=== PATIENT | female | born 1995 | race Caucasian/White ===

== ENCOUNTER 2018-01-17 01:09 | Emergency (ER) | END 2018-01-17 04:15 | disposition home or self-care (01) ==

== ENCOUNTER 2018-08-16 00:19 | Outpatient (CLI) | payer OTHER ==
[~2018-08-16] VITALS: Ht 167.6 cm; Wt 77.1 kg
[~2018-08-16 00:19] MED LIST: ACET500C5 PO
[2018-08-16 00:38] VITALS: BP 127/66; PULSE 90; RESP 16; Ht 167.6 cm; Wt 77.1 kg
--- NOTE | 2018-08-16 04:38 | TRIAGE ---
OB Triage Datetime Report Generated by CPN: 08/16/2018 04:37 Datetime: 08/16/2018 03:08 Stage of : OB Triage Labor Evaluation Frequency: None Monitor Mode: External Resting Tone [place]: Relaxed Heart Rate FHR Baseline Rate: 150 Monitor Mode: External US FHR Baseline Changes: No Baseline Change Variability: Moderate 6-25 bpm Accelerations: 15X15 Decelerations: None Category: Category I Datetime: 08/16/2018 03:06 Stage of : OB Triage Temperature Route: Oral Datetime: 08/16/2018 03:00 Stage of : OB Triage Labor Evaluation Frequency: Irregular Monitor Mode: External Duration (sec)2399: 40-70 Quality: Mild Pattern: Normal: <= 5 Contractions in 10 Minutes Resting Tone [place]: Relaxed Heart Rate FHR Baseline Rate: 150 Monitor Mode: External US FHR Baseline Changes: No Baseline Change Variability: Moderate 6-25 bpm Accelerations: 15X15 Decelerations: Variable (Annotations: x1) Category: Category II Datetime: 08/16/2018 02:00 Stage of : OB Triage Labor Evaluation Frequency: Irregular Monitor Mode: External Duration (sec)2399: 40-60 Quality: Mild Pattern: Normal: <= 5 Contractions in 10 Minutes Resting Tone [place]: Relaxed Heart Rate FHR Baseline Rate: 150 Monitor Mode: External US FHR Baseline Changes: No Baseline Change Variability: Moderate 6-25 bpm Accelerations: 15X15 Decelerations: None Category: Category I Datetime: 08/16/2018 01:00 Stage of : OB Triage Labor Evaluation Frequency: Irregular Monitor Mode: External Duration (sec)2399: 40-50 Quality: Mild Pattern: Normal: <= 5 Contractions in 10 Minutes Resting Tone [place]: Relaxed Heart Rate FHR Baseline Rate: 150 Monitor Mode: External US Variability: Moderate 6-25 bpm Accelerations: 15X15 Decelerations: None Category: Category I Datetime: 08/16/2018 00:30 Stage of : OB Triage EGA: 37.4 Maternal Assessment Level of Consciousness: Fully Conscious DTR's/Clonus: DTRs 2+; No Clonus Headache: Denies Blurred Vision: No Respiratory Effort: Unlabored; Regular Rhythm; Equal Expansion Breath Sounds, Left: Clear and Equal Breath Sounds, Right: Clear and Equal Nausea/Vomiting: Denies RUQ Epigastric Pain: Denies Lower Extremities Edema: None Degree: None Upper Extremities Edema: None Degree: None Facial Edema: None Temperature Route: Oral Fall Risk Assessment History of Falling: (0) No Secondary Diagnosis: (0) No Ambulatory Aid: (0) Bedrest/Nurse Assist IV Therapy: (0) No Gait: (0) Normal/Bedrest/Immobile Mental Status: (0) Oriented to Own Ability Fall Score: 0 Fall Risk Score Definition: No Risk: No action required Vaginal Exam Membrane Status: Intact Datetime: 08/16/2018 00:28 Time of Arrival: 08/16/2018 00:05 Arrived By: Wheelchair Arrived From: Emergency Dept Chief Complaint: PT PRESENTS TO OB [facility] WITH C/O OF CONSTANT BACK PAIN, SORE THROAT, COUGH, AND E ARACHE Movement: Present Contractions: Irregular Rupture of Membranes: Denies Vaginal Bleeding: None Vaginal Discharge: Denies Recent Sexual Intercouse: Denies Abdominal Trauma: Not Applicable Patient Complaints: Back Pain; Cough; Other Time Provider Notified: 08/16/2018 00:50 Provider Notified: GEO Initial Plan: EFM Datetime: 08/16/2018 00:25 Contraction Comments: TOCO APPLIED Comments: US APPLIED
--- NOTE | 2018-08-16 06:26 | PN ---
Triage Information Date/Time 08/16/1806/05/616 Reason for visit: sore troat and earache ,coughing , backache with coughing Weeks of Gestation 37w4d /Para Diabetes: none Hypertention: none Additional information chlamydia positive on November 2017 treated ? Objective Vital Signs Date Temp Pulse Resp B/P (MAP) Pulse Ox O2 O2 Flow FiO2 Time Delivery Rate 08/16/18 98.1 90 16 127/66 Room Air 00:38 (86) Heart Rate: 130's Heart Rate Comments CAT I tracing Contractions: >10 Minutes Apart Results/Medications Results 24 hrs Laboratory Tests Test 08/16/18 00:52 Urine Color LT. YELLOW Urine Clarity CLEAR Urine pH 6.0 Urine Specific [place] 1.005 Urine Ketones NEGATIVE Urine Nitrite NEGATIVE Urine Bilirubin NEGATIVE Urine Urobilinogen NEGATIVE Urine Leukocyte Esterase NEGATIVE Urine Hemoglobin NEGATIVE Urine Glucose NEGATIVE Urine Total Protein NEGATIVE Imaging Results BPP 8/8 FAB 10cm Disposition: ER for sore troat and otalgia and coughing for 2weeks Assessment/Plan A IUP 37w4d URI P to ER for the evaluation and treatment MIRTHA GUARDADO MD Aug 16, 2018 06:26
[2018-08-16] MEDS ORDERED: ACET500C5 PO (07:05)
[2018-08-16] MEDS ORDERED: AMOX1TAB10 PO (07:05)
== END 2018-08-16 03:28 | disposition home or self-care (01) ==
LOC: OBT 00:19 → L-D 00:22 → OBT 03:28
PROVIDERS: ATTEND Obstetrics & Gynecology
DX: O26.893 Other specified pregnancy related conditions, third trimester (principal); J06.9 Acute upper respiratory infection, unspecified; Z3A.37 37 weeks gestation of pregnancy
CPT/HCPCS: 76818; 81003; G0463

== ENCOUNTER 2018-08-16 03:34 | Emergency (ER) | payer OTHER ==
[~2018-08-16] VITALS: Ht 167.6 cm; Wt 76.6 kg
[2018-08-16 03:36] VITALS: Ht 167.6 cm; Wt 76.6 kg
[2018-08-16] MEDS ORDERED: AMOX1TAB10 PO (07:05)
[2018-08-16] MEDS ORDERED: ACET500C5 PO (07:05)
--- NOTE | 2018-08-16 07:10 | ERD ---
ER Documentation Chief Complaint Chief Complaint cleared; 37 wks preg; back pain 3 days ago HPI 23-year-old female presenting with back pain. Patient states that she has had a cough over the last 3 days and sore throat. She is also had some left ear pain. She states that her back pain is worse with coughing and rotational movement. She was cleared by OB and has had no complications with her . Patient is about 37 weeks with no vaginal bleeding. Patient has had no dysuria. Has not taken medications for symptoms. Denies medical problems. NKDA. Surgical history is ear tubes. Social history denies ROS All systems reviewed and are negative except as per history of present illness. Medications Home Meds Active Scripts Amoxicillin/Potassium Clav (Amox-Clav 875-125 mg Tablet) 875-125 mg Tab, 1 TAB PO BID for 7 Days, #14 TAB Prov:JASMINA AYALA PA-C 08/16/18 Acetaminophen* (Tylophen*) 500 Mg Capsule, 1 CAP PO Q6H PRN for PAIN AND OR ELEVATED TEMP, #20 CAP Prov:JASMINA AYALA PA-C 08/16/18 Acetaminophen* (Tylophen*) 500 Mg Capsule, 1 CAP PO Q6H PRN for PAIN AND OR ELEVATED TEMP, #20 CAP Prov:LATRICE ROLLINS NP 01/17/18 Discontinued Reported Medications [none] Unknown Strength No Conflict Check 01/17/18 Allergies Allergies: Coded Allergies: No Known Allergy (Unverified , 01/17/18) PMhx/Soc History of Surgery: Yes (EARS A CHILD) Anesthesia Reaction: No Hx Neurological Disorder: No Hx Respiratory Disorders: No Hx Cardiac Disorders: No Hx Psychiatric Problems: No Hx Miscellaneous Medical Probl: No Hx Alcohol Use: No Hx Substance Use: No Hx Tobacco Use: No FmHx Family History: No diabetes, No coronary disease, No other Physical Exam Vitals Vital Signs Date Temp Pulse Resp B/P (MAP) Pulse Ox O2 O2 Flow FiO2 Time Delivery Rate 08/16/18 97.5 87 119/64 96 03:36 (82) Physical Exam GENERAL: The patient is well-appearing, well-nourished, in no acute distress HEENT: Atraumatic. Conjunctivae are pink. Pupils equal, round, and reactive to light. There is no scleral icterus. Tympanic membranes clear bilaterally. Oropharynx clear. No nystagmus or photophobia. NECK: C-spine is soft and supple. There is no meningismus. There is no cervical lymphadenopathy. CHEST: Clear to auscultation bilaterally. There are no rales, wheezes or rhonchi. HEART: Regular rate and rhythm. No murmurs, clicks, rubs or gallops. ABDOMEN:Soft, nontender and nondistended. Good bowel sounds. No rebound or guarding. No gross peritonitis. No gross organomegaly or masses. N BACK: No midline or flank tenderness. Tender to palpation over the left chest wall with no crepitus. Procedures/MDM MDM: 23-year-old female presenting with rib pain. Patient likely strained herself with coughing low suspicion for rib fracture. Patient's breath sounds are stable and I have low suspicion for pneumonia. Patient does have concerning findings on your exam for early otitis media and I will treat with antibiotics. I have low suspicion for renal abnormality. I have low suspicion for pyelonephritis. I have low suspicion for complication due to . Patient is discharged with strict ER precautions and told to follow-up with primary care within 1-2 days for close evaluation. Patient is told if symptoms change or worsen to return immediately to the ER. All questions answered at discharge Departure Diagnosis: Primary Impression: Ear pain Additional Impression: Back pain Condition: Stable Patient Instructions: Back Pain (Acute Or Chronic), Otitis Media, Abx Tx (Adult) Referrals: [facility] YOU HAVE RECEIVED A MEDICAL SCREENING EXAM AND THE RESULTS INDICATE THAT YOU DO NOT HAVE A CONDITION THAT REQUIRES URGENT TREATMENT IN THE EMERGENCY DEPARTMENT. FURTHER EVALUATION AND TREATMENT OF YOUR CONDITION CAN WAIT UNTIL YOU ARE SEEN IN YOUR DOCTORS OFFICE WITHIN THE NEXT 1-2 DAYS. IT IS YOUR RESPONSIBILITY TO M CROW AN APPOINTMENT FOR FOL-UP CARE. IF YOU HAVE A PRIMARY DOCTOR --you should call your primary doctor and schedule an appointment IF YOU DO NOT HAVE A PRIMARY DOCTOR YOU CAN CALL OUR PHYSICIAN REFERRAL HOTLINE AT IF YOU CAN NOT AFFORD TO SEE A PHYSICIAN YOU CAN CHOSE FROM THE FOLLOWING [facility] [address] [facility]. [facility] [address] [facility] [address] [facility]. [facility] [address] [facility]. [facility] [address] [facility]. [facility]. [address] Additional Instructions: FOLLOW UP WITH YOUR PRIMARY CARE PHYSICIAN TOMORROW.Return to this facility if you are not improving as expected. JASMINA AYALA PA-C Aug 16, 2018 07:10
== END 2018-08-16 07:54 | disposition home or self-care (01) ==
LOC: FTE 03:34
DX: O99.89 Other specified diseases and conditions complicating pregnancy, childbirth and the puerperium (principal); M54.9 Dorsalgia, unspecified; H92.02 Otalgia, left ear; Z3A.37 37 weeks gestation of pregnancy
CPT/HCPCS: 99283